=== PATIENT | female | born 1965 | race Caucasian/White ===

== ENCOUNTER 2025-01-12 21:54 | Emergency (ER) | payer MEDICAID, OTHER | END 2025-01-12 22:30 | disposition home or self-care (01) | LOC: LB.ED 21:54 | DX: S01.01XA Laceration without foreign body of scalp, initial encounter (principal); I50.9 Heart failure, unspecified; I48.91 Unspecified atrial fibrillation; K21.9 Gastro-esophageal reflux disease without esophagitis; Z79.899 Other long term (current) drug therapy; Z79.82 Long term (current) use of aspirin; Z88.1 Allergy status to other antibiotic agents; Z88.8 Allergy status to other drugs, medicaments and biological substances; W26.8XXA Contact with other sharp object(s), not elsewhere classified, initial encounter | CPT/HCPCS: 12001; 99282; 99283 ==